=== PATIENT | male | born 1945 | race Caucasian/White ===

== ENCOUNTER → 2017-09-27 | Outpatient (CLI) | payer OTHER ==
[~2017-09-27] MED LIST: ALLO100T PO; ASPI81TA28 PO; BYS/5 PO; LISI-725 PO; PREG1CAP28 PO; SIMV20TA2 PO
== END | disposition home or self-care (01) ==
LOC: C.LABPBG 11:43
PROVIDERS: ATTEND Urology
DX: N40.0 Benign prostatic hyperplasia without lower urinary tract symptoms (principal)